=== PATIENT | male | born 1935 | race Caucasian/White ===

== ENCOUNTER 2022-09-22 10:55 | Outpatient (CLI) | payer MEDICARE | END 2022-09-22 10:56 | disposition home or self-care (01) | LOC: BICCT 10:55 | PROVIDERS: ATTEND Radiology Radiation Oncology | DX: C44.329 Squamous cell carcinoma of skin of other parts of face (principal); R59.0 Localized enlarged lymph nodes | CPT/HCPCS: 70491; 82565 ==

== ENCOUNTER 2022-09-30 08:00 | Outpatient (CLI) | payer MEDICARE | END 2022-09-30 08:01 | disposition home or self-care (01) | LOC: PET 08:00 | PROVIDERS: ATTEND Radiology Radiation Oncology | DX: C44.329 Squamous cell carcinoma of skin of other parts of face (principal); R59.0 Localized enlarged lymph nodes | CPT/HCPCS: 78815; A9552 ==